=== PATIENT | male | born 1970 | race Caucasian/White ===

== ENCOUNTER 2017-06-04 08:06 | Emergency (ER) | payer BC ==
[~2017-06-04] VITALS: Ht 185.4 cm; Wt 88.6 kg
[2017-06-04] MEDS ORDERED: TERAZOSIN HYDRO10 MG PO (08:24)
[2017-06-04] MEDS ORDERED: LEXAPRO 10MG10 MG PO (08:26)
[2017-06-04] MEDS ORDERED: CEPHALEXIN500 M1 PO (09:12)
[2017-06-04] MEDS ORDERED: SEPTRA DS 8001 TAB PO (09:17)
[2017-06-04 09:33] VITALS: BP 142/88
== END 2017-06-04 09:40 | disposition home or self-care (01) ==
LOC: ED 08:06
DX: S00.83XA Contusion of other part of head, initial encounter (principal); S00.81XA Abrasion of other part of head, initial encounter; S40.211A Abrasion of right shoulder, initial encounter; V86.59XA Driver of other special all-terrain or other off-road motor vehicle injured in nontraffic accident, initial encounter; M25.521 Pain in right elbow; M79.631 Pain in right forearm; M54.2 Cervicalgia; S40.021A Contusion of right upper arm, initial encounter; Y92.488 Other paved roadways as the place of occurrence of the external cause; R40.2412 Glasgow coma scale score 13-15, at arrival to emergency department; I10 Essential (primary) hypertension; Z23 Encounter for immunization
CPT/HCPCS: 90715